=== PATIENT | female | born 1970 | race African-American/Black ===

== ENCOUNTER 2017-03-17 12:40 | Observation (INO) ==
[2017-03-17] MEDS ORDERED: ASPIRIN 325 MG TABLET PO STA (13:03)
[2017-03-17] MEDS ORDERED: METOPROLOL TARTRATE 25 MG TABLET PO STA (13:03)
[2017-03-17] MEDS ORDERED: cloNIDine 0.1 MG TABLET PO STA (13:03)
[2017-03-17] MEDS ORDERED: KETOROLAC 30 MG/1 ML VIAL IV STA (13:03)
[2017-03-17] MEDS ORDERED: ONDANSETRON 4 MG/2 ML VIAL IV STA (13:03)
[2017-03-17] MEDS ORDERED: NITROGLYCERIN 2% OINT 1 INCH/GM PACK TOP STA (13:03)
[2017-03-17] MEDS ORDERED: ALUM/MAG/SIMETH/LIDO VISC 1:1 30 ML BOTTLE PO STA (13:03)
--- NOTE | 2017-03-17 13:37 | XRay Report ---
PA and lateral chest. Indication: Chest pain. Comparison: February 11, 2008. The heart and mediastinal contours are unremarkable. The pulmonary vasculature is normal. There is no consolidation, pneumothorax, or pleural effusion. The osseous structures are unremarkable. Impression: No abnormality is seen. PROCEDURE INTERPRETED AT [facility] Final Report Signed by: Dr. Hawa Jenkins
[2017-03-17] MEDS ORDERED: NITROGLYCERIN 2% OINT 1 INCH/GM PACK TOP ONE (13:42)
[2017-03-17] MEDS ORDERED: METOPROLOL TARTRATE 25 MG TABLET ONE (13:42)
[2017-03-17] MEDS ORDERED: ALUM/MAG/SIMETH/LIDO VISC 1:1 30 ML BOTTLE PO ONE (13:43)
[2017-03-17] MEDS ORDERED: ONDANSETRON 4 MG/2 ML VIAL ONE (13:43)
[2017-03-17] MEDS ORDERED: ASPIRIN 325 MG TABLET ONE (13:43)
[2017-03-17] MEDS ORDERED: KETOROLAC 30 MG/1 ML VIAL ONE (13:43)
[2017-03-17] MEDS ORDERED: cloNIDine 0.1 MG TABLET ONE (13:43)
[2017-03-17 13:47] LABS: Basophils # 0.1 10*3/uL (0.0-0.2); Basophils % 0.7 % (0.0-0.8); Eosinophils # 0.2 10*3/uL (0.0-0.87); Eosinophils % 2.4 % (0.00-10.9); Hematocrit 39.7 VOL% (35.7-47.0); Hemoglobin 12.8 GM/DL (12.0-16.0); Immature Granulocytes % 0.3 %; Immature Granulocytes Absolute 0.02 #; Lymphocytes # 2.2 10*3/uL (1.4-4.0); Mean Corpuscular HGB Conc 32.2 GM/DL (32-36); Mean Corpuscular Hemoglobin 29 PG (27-34); Mean Corpuscular Volume 89.2 FL (87-102); Mean Platelet Volume 9.2 FL (9.6-12.0); Monocytes # 0.6 10*3/uL (0.11-0.8); Monocytes % 8.2 % (1.7-12.7); Neutrophils # 4.4 10*3/uL (1.4-7.4); Neutrophils % 59.4 % (38.7-73.9); Platelet Count 305 T/CUMM (130-400); Red Blood Count 4.45 MC/CUMM (3.8-5.5); White Blood Count 7.5 T/CUMM (4-12)
[2017-03-17 14:03] LABS: Apearance,Urine Slightly Hazy (Clear); Bacteria,Urine Occasional /HPF (Few); Bilirubin,Urine Negative (Negative); Blood, Urine Negative (Negative); Glucose,Urine (UA) Negative (Negative); Ketones,Urine Negative (Negative); Mucus,Urine Occasional /LPF (Occasional); Nitrite,Urine Negative (Negative); Protein,Urine Negative; Squamous Epithelial Cell,Urine Occasional /HPF (0-10); Urine Color Yellow (Yellow); Urine Specific Gravity 1.013 (1.001-1.035); Urine Urobilinogen < 2.0 EU/DL (0.2-1.0); WBC,Urine <1 /HPF (0-6)
[2017-03-17 14:04] LABS: D-Dimer <= 0.5 MG/L FEU; PT Patient Result 10.5 SECS
[2017-03-17 14:07] LABS: Albumin 3.9 G/DL (3.4-5.0); Bilirubin,Total 0.6 MG/DL (0.2-1.0); Magnesium 2.1 MG/DL (1.8-2.4); Osmolality,Calculated 274.5 MOS/KG (273-304); Potassium 3.8 MMOL/L (3.5-5.1)
[2017-03-17 14:10] LABS: Barbiturates Screen,Urine Negative (Negative); Benzodiazepines Screen,Urine Negative (Negative); Cannabinoid Screen,Urine Negative (Negative); Opiate Screen,Urine Negative (Negative); Phencyclidine Screen,Urine Negative (Negative)
[2017-03-17] MEDS ORDERED: hydrALAZINE 20 MG/1 ML VIAL ONE (14:20)
[2017-03-17] MEDS ORDERED: hydrALAZINE 20 MG/1 ML VIAL IV STA (14:21)
--- NOTE | 2017-03-17 14:22 | Emergency Department Note ---
Johnnie Culp Brooke, am scribing for, and in the presence of, Nacho Lee MD 13 :08. Jesus Culp Charles R, MD, personally performed the services described in this documentation, ascribed by Annette Blair in my presence, and it is both accurate and complete 422 . Arrival - Arrival Chief Complaint: Chest Pain Stated Complaint: chest pain ED Nursing Triage Note: Pt c/o chest pain and SOB. Denies nausea. Mode of Arrival: Ambulatory Limitations: No Limitations Source: Patient, RN Notes Reviewed Time Seen by Provider: 03/17/17 13:02 - History of Present Illness HPI Narrative: Patient is a 46 year old female who presents to the ED with c/o chest pain. Patient says she noticed the chest pain, yesterday, but says it "really caught my attention" today. She says the pain is located in the center of her chest. She says the pain is worse when breathing and she says "I feel short of breath. " Patient denies having nausea or diaphoresis. Patient has not had any extra stress. She has PMHx of GERD and says she takes medication PRN. During triage, Patient's blood pressure was 212/101. She does not take blood pressure medication. Onset (ago): day(s) (2) Allergies/Adverse Reactions: Allergies Allergy/AdvReac Type Severity Reaction Status Date / Time acetaminophen [From Lortab] Allergy RASH Verified 03/17/17 12:47 codeine Allergy RASH Verified 03/17/17 12:47 hydrocodone [From Lortab] Allergy RASH Verified 03/17/17 12:47 latex Allergy RASH Verified 03/17/17 12:47 Sulfa (Sulfonamide Allergy RASH Verified 03/17/17 12:47 Antibiotics) Review of System - Review of System 12 point system: reviewed and no additional remarkable complaints except as stated - Review of System Constitutional: Absent: fever Respiratory: Present: other (short of breath). Absent: respiratory distress Cardiovascular: Present: chest pain Skin: Absent: rash Medical,Surgical,& Family Hx - Surgical History Reproductive Surgeries: Surgical HX of;: Hysterectomy - Social History Smoking Status: Never smoker Exam Vital Signs: Vital Signs Temperature 98.7 F 03/17/17 13:00 Pulse Rate 76 03/17/17 13:00 Respiratory Rate 16 03/17/17 13:00 Blood Pressure 212/101 03/17/17 13:00 O2 Sat by Pulse Oximetry 100 03/17/17 12:46 - General General appearance: alert, in no apparent distress - Head Head exam: Present: atraumatic, normocephalic - Eye Eye exam: Present: normal appearance, PERRL, EOMI - ENT ENT exam: Present: normal exam - Neck Neck exam: Present: normal inspection - Chest Chest inspection: Present: normal inspection, symmetric chest wall rise - Respiratory Respiratory exam: Present: normal lung sounds bilaterally - Abdominal Exam Abdominal exam: Present: soft, tenderness (epigastric), normal bowel sounds. Absent: distention - Extremities Exam Extremities exam: Present: normal inspection - Back Exam Back exam: Present: normal inspection - Neurological Exam Neurological exam: Present: alert, oriented X3 - Psychiatric Psychiatric exam: Present: normal affect, normal mood - Skin Skin exam: Present: warm, dry, intact, normal color Course - Reevaluation(s) Reevaluation #1: Patient was offered admission to the hospital. Patient does not want to stay in the hospital. Patient understands risk of going home with elevated blood pressure uncontrolled and chest pain. Patient accepts this risk and will follow -up outpatient stress test Time: 14:20 Results - Labs CBC & BMP: 03/17/17 13:37 03/17/17 13:37 Lab Results: I have reviewed the patients labs Labs: Laboratory Tests 03/17/17 13:37 WBC 7.5 RBC 4.45 Hgb 12.8 Hct 39.7 MCV 89.2 MCH 29 MCHC 32.2 RDW 14.0 Plt Count 305 MPV 9.2 L Neut % (Auto) 59.4 Lymph % (Auto) 29.0 Mcleod % (Auto) 8.2 Eos % (Auto) 2.4 Baso % (Auto) 0.7 Neut # (Auto) 4.4 Lymph # (Auto) 2.2 Mcleod # (Auto) 0.6 Eos # (Auto) 0.2 Baso # (Auto) 0.1 Immature Gran % 0.3 Nucleated RBC % 0.0 Immature Gran # 0.02 Nucleated RBCs # 0.00 Immature Plt Fraction 0.0 - Diagnostic Findings Procedure: Chest x-ray: report reviewed by me (No abnormality is seen.) Critical Care Time Critical Care Time: Yes Total Critical Care Time: 30 Disposition Clinical Impression: Atypical chest pain, Uncontrolled hypertension Case discussed with: patient, patient's family Disposition: Still a Patient Condition: Stable Time of Disposition: 14:21
--- NOTE | 2017-03-17 15:11 | Hospitalist History & Physical ---
Assessment and Plan (1) Atypical chest pain Status: Acute Assessment and plan: Impression: 1. Chest pain. This was somewhat atypical for cardiac disease 2. Hypertension Plan: Blood pressure appears to be coming down, and I told that it would we would need to resume an antihypertensive. Will ask for a cardiology opinion regarding noninvasive ischemic workup. This note was completed using [employer] voice recognition software. There may be casting and locker room servicer errors as a result. Current Visit: Yes History of Present Illness Chief complaint: Chest pain off and on for a couple of days History of present illness: Ms. Gonzalez is a 46 year old female She reports a history of some midsternal chest discomfort that started on the day prior to admission. She says that she was outside in her yard not doing much of anything, when she noted the onset of some midsternal chest discomfort. She says that there was some mild associated dyspnea but no radiation and no nausea. She says that the pain was not significant enough to make her change her activities, and it resolved in about 90 minutes. Today, she was driving home from [facility], and had an episode of midsternal chest discomfort that was more severe than the episode yesterday. She said that she had some associated nausea and dyspnea, and she reports that the pain seemed to be pleuritic in nature - she says that it was worse when she would try to take a deep breath. She says the pain resolved when she arrived at the emergency room and received some treatment. She reports a history of hypertension in the past, but discontinued antihypertensives when her doctor left [facility]. She does not recall what she took for blood pressure. She has never had any heart trouble before. She does not smoke. She is not diabetic. She has a family history of heart disease. When she came to the emergency room, her blood pressure was elevated and initially failed to respond to oral and injectable antihypertensives. An initial EKG was negative. Initial troponin and BNP were both normal. She is admitted to rule out [place] and to control blood pressure. Allergies Allergy/AdvReac Type Severity Reaction Status Date / Time acetaminophen [From Lortab] Allergy RASH Verified 03/17/17 12:47 codeine Allergy RASH Verified 03/17/17 12:47 hydrocodone [From Lortab] Allergy RASH Verified 03/17/17 12:47 latex Allergy RASH Verified 03/17/17 12:47 Sulfa (Sulfonamide Allergy RASH Verified 03/17/17 12:47 Antibiotics) Medical,Surgical,& Family Hx - Medical History Cardio: History of: Hypertension - Surgical History Reproductive Surgeries: Surgical HX of;: Hysterectomy - Family History Family History: Reports;: Family Heart Disease, Family Stroke - Social History Smoking Status: Never smoker Frequency of Alcohol Use: None Review of systems: Gen.: No weight loss or gain over the past year. Eyes: No glaucoma or cataracts. No change in visual acuity. Ears nose and throat: No change in auditory acuity, sinus problems, or sore throat. Lungs: No asthma, bronchitis, or pneumonia. Cardiac: No myocardial infarction, heart failure, stroke, murmur, or rheumatic fever. GI: No liver disease, nausea, vomiting, or diarrhea. : No hematuria, UTI, or stones. Neurologic: No seizures. Endocrine: No thyroid disease. Hematologic: No anemia or blood dyscrasias. Skin: No rashes or lesions. Musculoskeletal: Only age-related arthritic complaints. Exam - Constitutional Vitals: Period Temp Pulse Resp BP Sys/[place] Pulse Ox Last 24 Hr 98.7 F-98.7 F 70-76 13-18 175-212/101-125 100 General: She is a pleasant black lady in no distress. HEENT: Pupils are round and reactive. Extraocular muscles are normal. Gaze is conjugate. Fundi were not examined. There is no nasal discharge. Mucous membranes are moist. Neck: Supple, without mass, bruit, or venous distention. Cardiac: Rhythm is regular. The carotids are normal. I don't hear murmur gallop or rub. Peripheral pulses are intact. Lungs: Clear without rales, wheezes, or rubs. Abdomen: Soft and nontender. Bowel sounds are present. No mass palpable. Rectal: Not done. Extremities: No cyanosis, clubbing, or edema. Skin: No significant rash or lesion. Neurologic: She is awake and alert. She moves all 4 extremities. Cranial nerves appear to be intact. No pathologic reflexes are elicited. Results - Labs CBC & BMP: 03/17/17 13:37 03/17/17 13:37 Lab Results: I have reviewed the past 24 hour labs (Troponin, EKG, chest x-ray, and d-dimer are all normal)
[2017-03-17] MEDS ORDERED: ZALEPLON 5 MG CAPSULE PO PRN (15:13)
[2017-03-17] MEDS: amLODIPine 5 MG TABLET PO SCH (19:07)
[2017-03-17] MEDS: ENOXAPARIN 40 MG/0.4 ML SYRINGE SUBCUT SCH (19:07)
--- NOTE | 2017-03-17 21:11 | EKG Report ---
Stationary ECG Study [facility] Test Date: 03/17/2017 9:08:51 PM Pat Name: ZORAN PARSON Department: Room: 281 Gender: F Roadway Engineer: : 1970 Requested by: Nacho Stout Order Number: [id number] Reading MD: SHAHID UMNOZ Intervals [place] Rate: 65 P: 73 MD: 160 QRS: 63 QRSD: 90 T: 48 QT: 403 QTc: 415 Interpretive Statements SINUS RHYTHM Electronically Signed On 03-19-17 07:22:23 CDT by SHAHID MUNOZ [email or web address]
[2017-03-17] MEDS ORDERED: IBUPROFEN 400 MG TABLET PO PRN (21:34)
--- NOTE | 2017-03-18 07:16 | EKG Report ---
Stationary ECG Study [facility] Test Date: 03/17/2017 12:52:07 PM Pat Name: ZORAN PARSON Department: Room: 281 Gender: F Senior Contract Specialist: Vasquez Kennedy : 1970 Requested by: Nacho Stout Order Number: [id number] [place] MD: SHAHID MUNOZ Intervals [place] Rate: 68 P: 78 GA: 143 QRS: 71 QRSD: 91 T: 66 QT: 393 QTc: 411 Interpretive Statements SINUS RHYTHM Electronically Signed On 03-19-17 07:00:36 CDT by SHAHID MUNOZ [email or web address]
--- NOTE | 2017-03-18 10:46 | Cardiology Consult Note ---
<Omaira Corrales E - Last Filed: 03/18/17 10:29> Assessment and Plan - Time spent with patient Time spent with patient: Greater than 30 minutes (1) Obesity (BMI 30-39.9) Status: Chronic Assessment and plan: SEE PLAN OF CORE LISTED BELOW Current Visit: Yes (2) Sleep disorder Status: Chronic Assessment and plan: SEE PLAN OF CORE LISTED BELOW Current Visit: Yes (3) Atypical chest pain Status: Acute Assessment and plan: SEE PLAN OF CORE LISTED BELOW Current Visit: Yes (4) Uncontrolled hypertension Status: Acute Assessment and plan: SEE PLAN OF CORE LISTED BELOW Current Visit: Yes History of Present Illness - Data of Consult Patient: new to practice Consult date: 03/18/17 Requesting Physician: Jerrell Hooper - Consult Narrative Reason for consult: Chest pain History of present illness: EXECUTIVE RECRUITER: (ZANA) DR. MUNOZ PCP: NONE Ms. Gonzalez, 46BF, with no known history of CAD, not previously followed by cardiology. Risk factors include: hypertension, obesity and sedentary lifestyle. Admitted March 17, 2017 with complaints of 2 episodes of mid sternal chest discomfort. Initially, had chest discomfort described as "sharp" when she was walking in her yard Friday. This lasted approximately 5-10 seconds and was relieved. Yesterday, however, while driving she began to experience a mid sternal chest discomfort without radiation, worse with a deep breath and lasted approximately 10 minutes. She became mildly short of breath with the discomfort. She can identify no alleviating factors. Rates the discomfort as a 7 on a scale of 1-10 and is currently chest pain-free. Patient can perform her usual activities of daily living without complaints of chest pain, heaviness or tightness. No prior history of PE or DVT. D-dimer within normal limits. Patient had been out of her antihypertensives for approximately 6 weeks (her PCP no longer practices and she has not sought a new PCP). On arrival, blood pressure noted to be 212/101. She has been admitted to telemetry overnight. Cardiac biomarkers are negative, EKG reveals normal sinus rhythm. Patient's d-dimer is within normal limits therefore low suspicion for PTE. May consider CT chest. Patient may need for from treatment of musculoskeletal pain. She does have some lightly reproducible chest discomfort but this is separate than the pain with inspiration. We discussed the possibility of further cardiac workup to include a possible outpatient stress test and she is agreeable. She snores loudly, holds her breath per her , his neck circumference greater than 44 cm in Mallampati Airway Class IV. May benefit from outpatient sleep study evaluation and we will arrange for such prior to discharge. At this time, I will discuss with Dr. Munoz. ASSESSMENT/PLAN: 1. CHEST PAIN - cardiac biomarkers negative, EKG is stable. May be a musculoskeletal component to this. D-dimer within normal limits. 2. HYPERTENSION - better controlled once amlodipine was reinitiated 3. UNKNOWN LIPID STATUS - lipid profile ordered, results pending 4. OBESITY - counseled regarding the need for weight loss 5. SLEEP DISORDER - will arrange for outpatient sleep study evaluate CC: Jax Sanabria MD - Home Medications and Allergies Home Medications: Home Medications Medication Instructions Recorded Confirmed Type Levocetirizine Dihydrochloride 5 mg PO BEDTIME 03/17/17 03/17/17 History Allergies/Adverse Reactions: Allergies Allergy/AdvReac Type Severity Reaction Status Date / Time acetaminophen [From Lortab] Allergy RASH Verified 03/17/17 12:47 codeine Allergy RASH Verified 03/17/17 12:47 hydrocodone [From Lortab] Allergy RASH Verified 03/17/17 12:47 latex Allergy RASH Verified 03/17/17 12:47 Sulfa (Sulfonamide Allergy RASH Verified 03/17/17 12:47 Antibiotics) Review of systems: REVIEW OF SYSTEMS: - Constitutional Constitutional: Present: Fatigue. Absent: syncope, anorexia, night sweats - EENT Eyes: Absent: blurry vision, loss of vision, diplopia Ears: Absent: decreased hearing, ear pain, ear discharge - Cardiovascular Cardiovascular: Present: chest pain with deep breath. Denies dyspnea on exertion, edema, palpitations. Absent: Claudication - Respiratory Respiratory: Denies WIGGINS, cough. Absent: wheezing, hemoptysis, change in phlegm color - Gastrointestinal Gastrointestinal: Present: constipation. Absent: abdominal pain, hematemesis , hematochezia, melena, change in bowel habits, nausea - Genitourinary Genitourinary: Absent: difficulty urinating, dysuria, urinary hesitancy, flank pain - Musculoskeletal Musculoskeletal: Denies: back pain Absent: joint swelling, muscle cramps, muscle weakness - Neurological Neurological: Present: normal gait without frequent falls. Absent: dizziness, hemiparesis - Psychiatric Psychiatric: Absent: anxiety, depression, difficulty concentrating - Endocrine Endocrine: Present: fatigue. Absent: cold intolerance, heat intolerance, polyuria, polyphagia, polydipsia - Hematologic/Lymphatic Hematologic/Lymphatic: Present: easy bruising. Absent: easy bleeding -Integumentary Integumentary: Absent: lesions, rashes, skin breakdown Medical,Surgical,& Family Hx - Medical History Cardio: History of: Hypertension No history of: CAD, [place] Endocrine: No history of: Diabetes Mellitus (IDDM) Gastrointestinal: History of: GERD - Surgical History Reproductive Surgeries: Surgical HX of;: Hysterectomy - Family History Family History: Reports;: Family Hypertension, Family Stroke - Social History Smoking Status: Never smoker Have you smoked in the last 12 months: No Frequency of Alcohol Use: None Type of Drug Use: None Marital Status: Lives With:: Spouse Functional capacity: independent ambulation Physical Examination Vital Signs Temp Pulse Resp BP Pulse Ox 98.7 F 76 16 212/101 100 03/17/17 12:46 03/17/17 12:46 03/17/17 12:46 03/17/17 12:46 03/17/17 12:46 Exam: General: [Appears well with no apparent distress.] [Pleasant and cooperative. ] [Appears comfortable.] HEENT: [PERRL, normocephalic, atraumatic. Mucous membranes moist. No jaundice noted. Conjunctiva moist and clear, sclerae anicteric] Neck: No JVD/HJR, no thyromegaly or lymphadenopathy noted. No carotid bruit appreciated Cardiac: [Regular rate and rhythm.] [No murmur rub or gallop.] Tenderness to palpation mid sternal area Lungs: [Clear to auscultation without accessory muscle use to assist the respiratory pattern.] Not requiring oxygen Abdomen: Soft, bowel sounds normoactive. Nontender and nondistended. No abdominal bruit or thrill noted. No masses noted. Musculoskeletal: No fluid collection. Decreased range of motion is noted. Extremities: No clubbing, cyanosis noted. [ No edema noted.] Upper extremity pulses 2+. Lower extremity pulses 2+. Capillary refill less than 3 seconds. Skin: No unusual lesions or rashes. No skin breakdown appreciated. Neuro: Awake, alert and oriented 3. Moves all extremities well without hemiparesis or paralysis. No essential tremor is appreciated. Result/EKG - Labs CBC & BMP: 03/17/17 13:37 03/17/17 13:37 Lab Results: I have reviewed the past 24 hour labs Labs: Laboratory Results - last 24 hr 03/17/17 03/17/17 03/17/17 13:03 13:37 13:37 WBC RBC Hgb Hct MCV MCH MCHC RDW Plt Count MPV Neut % (Auto) Lymph % (Auto) [place] % (Auto) Eos % (Auto) Baso % (Auto) Neut # (Auto) Lymph # (Auto) [place] # (Auto) Eos # (Auto) Baso # (Auto) Immature Gran % Nucleated RBC % Immature Gran # Nucleated RBCs # Immature Plt Fraction INR 1.0 PT Patient/Control Mix 10.5 D-Dimer, Quantitative <= 0.5 Sodium 139 Potassium 3.8 Chloride 107 Carbon Dioxide 27 Anion Gap 8.8 BUN 9 Creatinine 0.90 GFR Calculation 95 BUN/Creatinine Ratio 10.00 Glucose 88 Calculated Osmolality 274.5 Calcium 9.0 Magnesium 2.1 Total Bilirubin 0.60 AST 12 ALT 21 Alkaline Phosphatase 59 Troponin I B-Natriuretic Peptide Total Protein 8.0 Albumin 3.9 Globulin 4.1 H Albumin/Globulin Ratio 0.9 L Lipase 78.0 Urine Color Yellow Urine Appearance Slightly hazy Urine pH 6.0 Ur Specific [place] 1.013 Urine Protein Negative Urine Glucose (UA) Negative Urine Ketones Negative Urine Blood Negative Urine Nitrate Negative Urine Bilirubin Negative Urine Urobilinogen < 2.0 H Urine Leukocytes Negative Urine WBC <1 Ur Squamous Epith Cells Occasional Urine Bacteria Occasional Urine Mucus Occasional Ur Culture Indicated? Not indicated Urine Opiates Screen Ur Barbiturates Screen Ur Phencyclidine Scrn U Amphetamine/Methamph U Benzodiazepines Scrn U Cocaine Metab Screen U Cannabinoids Screen 03/17/17 03/17/17 03/17/17 13:37 13:37 13:37 WBC 7.5 RBC 4.45 Hgb 12.8 Hct 39.7 MCV 89.2 MCH 29 MCHC 32.2 RDW 14.0 Plt Count 305 MPV 9.2 L Neut % (Auto) 59.4 Lymph % (Auto) 29.0 [place] % (Auto) 8.2 Eos % (Auto) 2.4 Baso % (Auto) 0.7 Neut # (Auto) 4.4 Lymph # (Auto) 2.2 [place] # (Auto) 0.6 Eos # (Auto) 0.2 Baso # (Auto) 0.1 Immature Gran % 0.3 Nucleated RBC % 0.0 Immature Gran # 0.02 Nucleated RBCs # 0.00 Immature Plt Fraction 0.0 INR PT Patient/Control Mix D-Dimer, Quantitative Sodium Potassium Chloride Carbon Dioxide Anion Gap BUN Creatinine GFR Calculation BUN/Creatinine Ratio Glucose Calculated Osmolality Calcium Magnesium Total Bilirubin AST ALT Alkaline Phosphatase Troponin I < 0.015 B-Natriuretic Peptide 35 Total Protein Albumin Globulin Albumin/Globulin Ratio Lipase Urine Color Urine Appearance Urine pH Ur Specific [place] Urine Protein Urine Glucose (UA) Urine Ketones Urine Blood Urine Nitrate Urine Bilirubin Urine Urobilinogen Urine Leukocytes Urine WBC Ur Squamous Epith Cells Urine Bacteria Urine Mucus Ur Culture Indicated? Urine Opiates Screen Ur Barbiturates Screen Ur Phencyclidine Scrn U Amphetamine/Methamph U Benzodiazepines Scrn U Cocaine Metab Screen U Cannabinoids Screen 03/17/17 03/17/17 03/17/17 13:58 16:00 18:44 WBC RBC Hgb Hct MCV MCH MCHC RDW Plt Count MPV Neut % (Auto) Lymph % (Auto) [place] % (Auto) Eos % (Auto) Baso % (Auto) Neut # (Auto) Lymph # (Auto) [place] # (Auto) Eos # (Auto) Baso # (Auto) Immature Gran % Nucleated RBC % Immature Gran # Nucleated RBCs # Immature Plt Fraction INR PT Patient/Control Mix D-Dimer, Quantitative Sodium Potassium Chloride Carbon Dioxide Anion Gap BUN Creatinine GFR Calculation BUN/Creatinine Ratio Glucose Calculated Osmolality Calcium Magnesium Total Bilirubin AST ALT Alkaline Phosphatase Troponin I < 0.015 < 0.015 B-Natriuretic Peptide Total Protein Albumin Globulin Albumin/Globulin Ratio Lipase Urine Color Urine Appearance Urine pH Ur Specific [place] Urine Protein Urine Glucose (UA) Urine Ketones Urine Blood Urine Nitrate Urine Bilirubin Urine Urobilinogen Urine Leukocytes Urine WBC Ur Squamous Epith Cells Urine Bacteria Urine Mucus Ur Culture Indicated? Urine Opiates Screen Negative Ur Barbiturates Screen Negative Ur Phencyclidine Scrn Negative U Amphetamine/Methamph Negative U Benzodiazepines Scrn Negative U Cocaine Metab Screen Negative U Cannabinoids Screen Negative - Diagnostic Findings Procedure: Chest x-ray: report reviewed by me - EKG EKG results: interpreted by ut EKG shows: sinus rhythm <Nola Munoz - Last Filed: 03/18/17 13:40> Assessment and Plan - Time spent with patient Time spent with patient: Greater than 30 minutes (1) Non-cardiac chest pain Status: Acute Assessment and plan: Patient has noncardiac chest discomfort but has some risk she is obese has hypertension. I have recommended that she have a 81 mg aspirin daily to her regimen keep a tight blood pressure log and blood pressure control get a outpatient walking gated nuclear stress test and follow-up with me in 2 weeks Current Visit: Yes (2) Gastroesophageal reflux disease Status: Acute Assessment and plan: Patient clearly has significant problems with she has been on Zantac and has failed to work we will add a PPI of asked her to continue her Zantac for 2 more weeks after starting the PPI. Current Visit: Yes (3) Uncontrolled hypertension Status: Acute Assessment and plan: Her blood pressure was uncontrolled on admission is now very well controlled. Recommend that she keep a blood pressure log before follow-up Current Visit: Yes (4) Obesity (BMI 30-39.9) Status: Chronic Current Visit: Yes History of Present Illness - Consult Narrative History of present illness: Ms. Gonzalez is a 46 year old female CC: Jax Sanabria MD Review of systems: The patient is experienced chest pain 2 appears to be related to deep breaths also she has a significant amount of heartburn but there are 2 different types of pain. She has had no exertional component except when she is "breathing hard." She has a very low risk profile she has negative cardiac biomarkers no ST segment changes she does not take an aspirin a day her lipid panel is low risk. I recommended that she have outpatient walking stress test. Medical,Surgical,& Family Hx - Medical History Gastrointestinal: History of: GERD - Family History Family History: Reports;: Family Hypertension, Family Stroke - Social History Smoking Status: Never smoker Frequency of Alcohol Use: None Type of Drug Use: None Marital Status: Lives With:: Spouse Functional capacity: independent ambulation (homemaker) Physical Examination Vital Signs Temp Pulse Resp BP Pulse Ox 98.7 F 76 16 212/101 100 03/17/17 12:46 03/17/17 12:46 03/17/17 12:46 03/17/17 12:46 03/17/17 12:46 Exam: Agree with the physical exam as above. She has a very benign exam her cardiac exam is normal but her PMI is not well localized. It, however, is not laterally displaced Result/EKG - Labs CBC & BMP: 03/17/17 13:37 03/17/17 13:37 Labs: Laboratory Results - last 24 hr 03/17/17 03/17/17 03/17/17 13:03 13:37 13:37 WBC RBC Hgb Hct MCV MCH MCHC RDW Plt Count MPV Neut % (Auto) Lymph % (Auto) [place] % (Auto) Eos % (Auto) Baso % (Auto) Neut # (Auto) Lymph # (Auto) [place] # (Auto) Eos # (Auto) Baso # (Auto) Immature Gran % Nucleated RBC % Immature Gran # Nucleated RBCs # Immature Plt Fraction INR 1.0 PT Patient/Control Mix 10.5 D-Dimer, Quantitative <= 0.5 Sodium 139 Potassium 3.8 Chloride 107 Carbon Dioxide 27 Anion Gap 8.8 BUN 9 Creatinine 0.90 GFR Calculation 95 BUN/Creatinine Ratio 10.00 Glucose 88 Calculated Osmolality 274.5 Calcium 9.0 Magnesium 2.1 Total Bilirubin 0.60 AST 12 ALT 21 Alkaline Phosphatase 59 Troponin I B-Natriuretic Peptide Total Protein 8.0 Albumin 3.9 Globulin 4.1 H Albumin/Globulin Ratio 0.9 L Triglycerides Cholesterol LDL Cholesterol VLDL Cholesterol HDL Cholesterol Heart Disease Risk Ratio Lipase 78.0 Urine Color Yellow Urine Appearance Slightly hazy Urine pH 6.0 Ur Specific [place] 1.013 Urine Protein Negative Urine Glucose (UA) Negative Urine Ketones Negative Urine Blood Negative Urine Nitrate Negative Urine Bilirubin Negative Urine Urobilinogen < 2.0 H Urine Leukocytes Negative Urine WBC <1 Ur Squamous Epith Cells Occasional Urine Bacteria Occasional Urine Mucus Occasional Ur Culture Indicated? Not indicated Urine Opiates Screen Ur Barbiturates Screen Ur Phencyclidine Scrn U Amphetamine/Methamph U Benzodiazepines Scrn U Cocaine Metab Screen U Cannabinoids Screen 03/17/17 03/17/17 03/17/17 13:37 13:37 13:37 WBC 7.5 RBC 4.45 Hgb 12.8 Hct 39.7 MCV 89.2 MCH 29 MCHC 32.2 RDW 14.0 Plt Count 305 MPV 9.2 L Neut % (Auto) 59.4 Lymph % (Auto) 29.0 [place] % (Auto) 8.2 Eos % (Auto) 2.4 Baso % (Auto) 0.7 Neut # (Auto) 4.4 Lymph # (Auto) 2.2 [place] # (Auto) 0.6 Eos # (Auto) 0.2 Baso # (Auto) 0.1 Immature Gran % 0.3 Nucleated RBC % 0.0 Immature Gran # 0.02 Nucleated RBCs # 0.00 Immature Plt Fraction 0.0 INR PT Patient/Control Mix D-Dimer, Quantitative Sodium Potassium Chloride Carbon Dioxide Anion Gap BUN Creatinine GFR Calculation BUN/Creatinine Ratio Glucose Calculated Osmolality Calcium Magnesium Total Bilirubin AST ALT Alkaline Phosphatase Troponin I < 0.015 B-Natriuretic Peptide 35 Total Protein Albumin Globulin Albumin/Globulin Ratio Triglycerides Cholesterol LDL Cholesterol VLDL Cholesterol HDL Cholesterol Heart Disease Risk Ratio Lipase Urine Color Urine Appearance Urine pH Ur Specific [place] Urine Protein Urine Glucose (UA) Urine Ketones Urine Blood Urine Nitrate Urine Bilirubin Urine Urobilinogen Urine Leukocytes Urine WBC Ur Squamous Epith Cells Urine Bacteria Urine Mucus Ur Culture Indicated? Urine Opiates Screen Ur Barbiturates Screen Ur Phencyclidine Scrn U Amphetamine/Methamph U Benzodiazepines Scrn U Cocaine Metab Screen U Cannabinoids Screen 03/17/17 03/17/17 03/17/17 13:58 16:00 18:44 WBC RBC Hgb Hct MCV MCH MCHC RDW Plt Count MPV Neut % (Auto) Lymph % (Auto) [place] % (Auto) Eos % (Auto) Baso % (Auto) Neut # (Auto) Lymph # (Auto) [place] # (Auto) Eos # (Auto) Baso # (Auto) Immature Gran % Nucleated RBC % Immature Gran # Nucleated RBCs # Immature Plt Fraction INR PT Patient/Control Mix D-Dimer, Quantitative Sodium Potassium Chloride Carbon Dioxide Anion Gap BUN Creatinine GFR Calculation BUN/Creatinine Ratio Glucose Calculated Osmolality Calcium Magnesium Total Bilirubin AST ALT Alkaline Phosphatase Troponin I < 0.015 < 0.015 B-Natriuretic Peptide Total Protein Albumin Globulin Albumin/Globulin Ratio Triglycerides Cholesterol LDL Cholesterol VLDL Cholesterol HDL Cholesterol Heart Disease Risk Ratio Lipase Urine Color Urine Appearance Urine pH Ur Specific [place] Urine Protein Urine Glucose (UA) Urine Ketones Urine Blood Urine Nitrate Urine Bilirubin Urine Urobilinogen Urine Leukocytes Urine WBC Ur Squamous Epith Cells Urine Bacteria Urine Mucus Ur Culture Indicated? Urine Opiates Screen Negative Ur Barbiturates Screen Negative Ur Phencyclidine Scrn Negative U Amphetamine/Methamph Negative U Benzodiazepines Scrn Negative U Cocaine Metab Screen Negative U Cannabinoids Screen Negative 03/18/17 10:54 WBC RBC Hgb Hct MCV MCH MCHC RDW Plt Count MPV Neut % (Auto) Lymph % (Auto) [place] % (Auto) Eos % (Auto) Baso % (Auto) Neut # (Auto) Lymph # (Auto) [place] # (Auto) Eos # (Auto) Baso # (Auto) Immature Gran % Nucleated RBC % Immature Gran # Nucleated RBCs # Immature Plt Fraction INR PT Patient/Control Mix D-Dimer, Quantitative Sodium Potassium Chloride Carbon Dioxide Anion Gap BUN Creatinine GFR Calculation BUN/Creatinine Ratio Glucose Calculated Osmolality Calcium Magnesium Total Bilirubin AST ALT Alkaline Phosphatase Troponin I B-Natriuretic Peptide Total Protein Albumin Globulin Albumin/Globulin Ratio Triglycerides 82 Cholesterol 166 LDL Cholesterol 90.0 VLDL Cholesterol 16.4 HDL Cholesterol 51 Heart Disease Risk Ratio 3.25 Lipase Urine Color Urine Appearance Urine pH Ur Specific [place] Urine Protein Urine Glucose (UA) Urine Ketones Urine Blood Urine Nitrate Urine Bilirubin Urine Urobilinogen Urine Leukocytes Urine WBC Ur Squamous Epith Cells Urine Bacteria Urine Mucus Ur Culture Indicated? Urine Opiates Screen Ur Barbiturates Screen Ur Phencyclidine Scrn U Amphetamine/Methamph U Benzodiazepines Scrn U Cocaine Metab Screen U Cannabinoids Screen - EKG EKG results: interpreted by me, WNL, sinus rhythm EKG shows: sinus rhythm
[2017-03-18] MEDS ORDERED: PANTOPRAZOLE 40 MG TABLET PO SCH (11:30)
[2017-03-18 11:44] LABS: Risk Ratio 3.25; VLDL CHOLESTEROL 16.4 MG/DL
--- NOTE | 2017-03-18 12:19 | Ultrasound Report ---
Venous Doppler ultrasound bilateral lower extremities Indication: Edema Comparison: None available Findings: No evidence of echogenic, noncompressible thrombus seen in the visualized veins of the extremities. Color Doppler venous waveform pattern is within normal limits. Impression: No evidence of deep venous thrombosis. Ultrasound images stored and captured. PROCEDURE INTERPRETED AT [facility] DEPARTMENT OF RADIOLOGY Final Report Signed by: Dr. Roc Freitas
[2017-03-18] MEDS: amLODIPine 5 MG TABLET PO SCH (13:48)
--- NOTE | 2017-03-18 15:57 | Discharge Summary ---
Hospital Course - Hospital Course Hospital Course: Ms. Gonzalez is a 46-year-old female with history of uncontrolled hypertension and obesity admitted to the hospitalist service from the emergency department with midsternal chest discomfort and hypertensive urgency. Patient's blood pressure was elevated and initially failed to respond to oral and injectable antihypertensives. She had a negative troponin, BMP, and EKG was normal. Cardiology was consulted for an opinion regarding noninvasive ischemic workup. 81 mg aspirin was added to her daily regimen and she was instructed to keep a blood pressure log, follow-up with Dr. Mathur in 2 weeks for nuclear stress test. She was also started on PPI for uncontrolled GERD. She was also set up for outpatient sleep evaluation. Patient is feeling much better, blood pressure under control, she has no chest pain. She will be discharged home with follow-up as stated above. Care coordination, chart review, and completed discharge paperwork took approximately 34 minutes. - Time spent with patient Time with patient DS: Greater than 30 minutes Diagnosis - Discharge Diagnosis (1) Atypical chest pain Status: Resolved (2) Uncontrolled hypertension Status: Resolved (3) Obesity (BMI 30-39.9) Status: Chronic (4) Sleep disorder Status: Chronic (5) Gastroesophageal reflux disease Status: Chronic Discharge Plan - Discharge Data Disposition: Disch To Home/Self Care Condition at Discharge: Stable Discharge Diet: heart healthy Activity: resume usual activities as tolerated Contact your physician if you experience:: Shortness of breath, pain uncontrolled by pain medications - Discharge Medications New amLODIPine [Norvasc] 5 mg PO DAILY #60 tablet Pantoprazole Tab [Protonix Tab] 40 mg PO DAILY #60 tablet Aspirin EC Tab 81 mg PO DAILY #60 tablet Continue Levocetirizine Dihydrochloride 5 mg PO BEDTIME - Follow Up or Referral Follow Up: Nola Mathur DO [Physician] - 2 Weeks (With stress test) - Forms/Instructions Additional Discharge Instructions: Keep blood pressure log Exam - Constitutional Vitals: Period Temp Pulse Resp BP Sys/[place] Pulse Ox Last 24 Hr 97.6 F-98.6 F 64-95 18-20 126-146/66-74 99-100 Exam: 46-year-old female, no acute distress, alert oriented Chest clear CV regular rate and rhythm Abdomen obese, nontender Extremities no edema Discharge Results Labs on day of discharge: Labs from last 24 hours 03/18/17 03/17/1703/17/17 10:54 18:44 16:00 Troponin I < 0.015 < 0.015 Triglycerides 82 Cholesterol 166 LDL Cholesterol 90.0 VLDL Cholesterol 16.4 HDL Cholesterol 51 Heart Disease Risk Ratio 3.25 DS: Provider Date of admission: 03/17/17 14:36 Primary care physician: . No PCP Attending physician on admission: Jerrell Hooper MD Consults: 03/17/17 15:13 Consult to Physician [CONS] Routine Comment: chest pain Consulting Provider: Consult to Specialist Group: Cardiology When should Consulting Provider be notified: Now Person Notified: luis manuel Date Notified: 03/18/17 Time Notified: 08:30 Discharging clinician: MARY Cm Expected date of discharge: 03/18/17
[2017-03-18] MEDS: ENOXAPARIN 40 MG/0.4 ML SYRINGE SUBCUT SCH (16:03)
[2017-03-18 16:13] VITALS: BP 133/73
[2017-03-19] MEDS ORDERED: ASPIRIN EC 81 MG TABLET PO SCH (09:00)
== END 2017-03-18 17:16 | disposition home or self-care (01) ==
LOC: N.EDINP 12:40 → N.ED 12:40 → SUATTDRO 14:36 → N.EDINP 15:48 → N.TELEN 15:51
PROVIDERS: ADMIT Internal Medicine Geriatric Medicine; ATTEND Internal Medicine